=== PATIENT | male | born 1960 | race Caucasian/White ===

== ENCOUNTER 2020-02-02 19:51 | Emergency (ER) | payer OTHER ==
[~2020-02-02] VITALS: Ht 180.3 cm; Wt 72.6 kg
[2020-02-02] MEDS ORDERED: AUGMENTIN 500-1 EACH PO (20:48)
[2020-02-02 21:06] VITALS: BP 141/70
== END 2020-02-02 21:07 | disposition home or self-care (01) ==
LOC: M.ERS 19:51
DX: S61.212A Laceration without foreign body of right middle finger without damage to nail, initial encounter (principal); S66.112A Strain of flexor muscle, fascia and tendon of right middle finger at wrist and hand level, initial encounter; W01.110A Fall on same level from slipping, tripping and stumbling with subsequent striking against sharp glass, initial encounter; Y93.89 Activity, other specified; Y92.89 Other specified places as the place of occurrence of the external cause; Y99.8 Other external cause status